=== PATIENT | male | born 1960 | race American Indian/Alaskan Native ===

== ENCOUNTER 2018-10-29 21:22 | Emergency (ER) | payer OTHER ==
[2018-10-29 22:06] VITALS: BP 146/83
--- NOTE | 2018-10-29 23:24 | XRay Report ---
PROCEDURE: XR FOREARM LT TECHNIQUE: Left forearm radiographs, AP and lateral views. HISTORY: pain and swelling L hand COMPARISONS: None . FINDINGS: Fracture (s) and/or Dislocation(s): An acute nondisplaced fracture is noted involving the distal rad ial metaphysis. . Joint space(s): Normal . Soft tissues: Normal . Bone mineralization: Normal . Foreign bodies: None . IMPRESSION: Acute fracture distal radial metaphysis. This document is electronically signed by Esteban Casper MD., October 29 2018 11:22:15 PM ET
--- NOTE | 2018-10-29 23:35 | XRay Report ---
PROCEDURE: XR HAND 3+V LT TECHNIQUE: Left hand radiographs, PA, lateral, and oblique views. HISTORY: pain and swelling L hand COMPARISONS: None . FINDINGS: Fracture (s) and/or Dislocation(s): Acute nondisplaced fracture is noted involving distal radial met aphysis. . Alignment: Normal . Joint space(s): Normal . Soft tissues: Mild degree soft tissue swelling is noted. . Bone mineralization: Normal . Foreign bodies: None . IMPRESSION: Acute nondisplaced fracture of distal radial metaphysis. This document is electronically signed by Esteban Casper MD., October 29 2018 11:33:20 PM ET
[2018-10-30] MEDS ORDERED: NORCO 5/325 PO ONE
--- NOTE | 2018-10-30 00:51 | Emergency Department Report ---
ED Upper Extremity Inj HPI - General Chief Complaint: Extremity Injury, Upper Stated Complaint: LEFT HAND INJURY Time Seen by Provider: 10/29/18 23:58 Source: patient Mode of arrival: Ambulatory Limitations: No Limitations - History of Present Illness Initial Comments: Patient is a 58-year-old Armenian male who presents with left wrist pain status post fall in the bed of his pickup truck patient states is common Haritha slipped and fell on his left wrist pain swelling 11/28 there is no open wound no bleeding range of motion is restricted by pain MD Complaint: Injury to:: left, wrist Onset/Timin -: hour(s) Other Extremity Injury: Wrist: Left Other Injuries: none Handedness: right Place: outdoors Severity scale (0 -10): 5 Improves With: none Worsens With: movement of extremity Context: fall, direct blow - Related Data Previous Rx's Medication Instructions Recorded Last Taken Type HYDROcodone/ACETAMINOPHEN 1 each PO Q6H PRN #12 tablet 10/30/18 Unknown Rx [Hydrocodone-Acetamin 5-325 mg] Allergies Allergy/AdvReac Type Severity Reaction Status Date / Time No Known Allergies Allergy Unverified 10/29/18 21:50 ED Review of Systems ROS: Stated complaint: LEFT HAND INJURY Other details as noted in HPI Constitutional: denies: chills, fever Eyes: denies: eye pain, eye discharge, vision change ENT: denies: ear pain, throat pain Respiratory: denies: cough, shortness of breath, wheezing Cardiovascular: denies: chest pain, palpitations Endocrine: no symptoms reported Gastrointestinal: denies: abdominal pain, nausea, diarrhea Genitourinary: denies: urgency, dysuria Musculoskeletal: arthralgia, other (left wrist pain ) Skin: denies: rash, lesions Neurological: denies: headache, weakness, paresthesias Psychiatric: denies: anxiety, depression Hematological/Lymphatic: denies: easy bleeding, easy bruising ED Past Medical Hx - Past Medical History Previous Medical History?: Yes Hx Hypertension: Yes Hx Diabetes: Yes - Surgical History Past Surgical History?: No - Social History Smoking Status: Current Every Day Smoker Substance Use Type: Heroin - Medications Home Medications: Home Medications Medication Instructions Recorded Confirmed Last Taken Type HYDROcodone/ACETAMINOPHEN 1 each PO Q6H PRN #12 tablet 10/30/18 Unknown Rx [Hydrocodone-Acetamin 5-325 mg] ED Physical Exam - General Limitations: No Limitations General appearance: alert, in no apparent distress - Head Head exam: Present: atraumatic, normocephalic, normal inspection - Eye Eye exam: Present: normal appearance, PERRL, EOMI - ENT ENT exam: Present: normal exam, mucous membranes moist - Neck Neck exam: Present: normal inspection, full ROM. Absent: tenderness, lymphadenopathy - Respiratory Respiratory exam: Present: normal lung sounds bilaterally. Absent: respiratory distress, wheezes, stridor, chest wall tenderness - Cardiovascular Cardiovascular Exam: Present: regular rate, normal rhythm. Absent: systolic murmur, diastolic murmur, rubs, gallop - GI/Abdominal GI/Abdominal exam: Present: soft, normal bowel sounds. Absent: distended, rebound, bruit, hernia - Rectal Rectal exam: Present: deferred - exam: Present: normal inspection - Extremities Exam Extremities exam: Present: normal inspection, tenderness, normal capillary refill, joint swelling - Expanded Upper Extremity Exam Left Forearm Wrist exam: Present: tenderness, swelling. Absent: abrasion, laceration, ecchymosis, deformity, crepidus, dislocation, erythema, tenderness over anatomical snuff box, pain with axial thumb loading Hand Wrist exam: Present: tenderness, swelling. Absent: abrasion, laceration, ecchymosis, deformity, crepidus, dislocation, erythema, amputation, nail avulsion, subungual hematoma Neuro motor exam: Present: wrist extension intact, thumb opposition intact, t humb IP flexion intact, thumb adduction intact, fingers 2-5 abduction intact Neurosensory exam: Present: 2-point discrimination, radial nerve intact, ulnar nerve intact, median nerve intact Vascular: Present: normal capillary refill, radial pulse, brachial pulse, ulnar pulse. Absent: vascular compromise, pulse deficit radial art, pulse deficit uln ar art, pulse deficit brachial art - Back Exam Back exam: Present: normal inspection, full ROM. Absent: tenderness, muscle spasm, rash noted - Neurological Exam Neurological exam: Present: alert, oriented X3, CN II-XII intact, normal gait, reflexes normal - Psychiatric Psychiatric exam: Present: normal affect, normal mood - Skin Skin exam: Present: warm, dry, intact, normal color. Absent: rash ED Course Vital Signs 10/29/18 22:03 Temperature 99.1 F Pulse Rate 60 Respiratory 18 Rate Blood Pressure 146/83 O2 Sat by Pulse 95 Oximetry ED Medical Decision Making - Radiology Data Radiology results: report reviewed, image reviewed Fluoro Time In Minutes: PROCEDURE: XR HAND 3+V LT TECHNIQUE: Left hand radiographs, PA, lateral, and oblique views. HISTORY: pain and swelling L hand COMPARISONS: None . FINDINGS: Fracture (s) and/or Dislocation(s): Acute nondisplaced fracture is noted involving distal radial metaphysis. . Alignment: Normal . Joint space(s): Normal . Soft tissues: Mild degree soft tissue swelling is noted. . Bone mineralization: Normal . Foreign bodies: None . IMPRESSION: Acute nondisplaced fracture of distal radial metaphysis. This document is electronically signed by Rosita Casper MD., October 29 2018 11:33:20 PM ET Transcribed By: [facility] [place] Dictated By: ROSTIA CASPER Electronically Authenticated By: ROSITA CASPER Signed Date/Time: 10/29/182334 DD/ 11 TD/TT: 10/29/182312 Patient: PAULETTE VARGAS MR#: [id number] : 1960 Acct:[id number] Age/Sex: 58 / M ADM Date: 10/29/18 Loc: ED Attending Dr: Ordering Physician: DANG MENDIETA MD Date of Service: 10/29/18 Procedure(s): XR forearm LT Accession Number(s): [id number] cc: DANG MENDIETA MD Fluoro Time In Minutes: PROCEDURE: XR FOREARM LT TECHNIQUE: Left forearm radiographs, AP and lateral views. HISTORY: pain and swelling L hand COMPARISONS: None . FINDINGS: Fracture (s) and/or Dislocation(s): An acute nondisplaced fracture is noted involving the distal radial metaphysis. . Joint space(s): Normal . Soft tissues: Normal . Bone mineralization: Normal . Foreign bodies: None . IMPRESSION: Acute fracture distal radial metaphysis. This document is electronically signed by Rosita Casper MD., October 29 2018 11:22:15 PM ET Transcribed By: [facility] [place] Dictated By: ROSITA CASPER Electronically Authenticated By: ROSITA CASPER Signed Date/Time: 10/29/18 2324 DD/ 12 TD/TT: 10/29/182312 - Medical Decision Making this is a closed distal radial fract nondisplaced plan velcro thumb spica, follow up with ortho in am, distal pulses intact student specialist intact <3 sec, rom restricted by pain no deformity no crepitus, no ecchymosis no pain to axial thumb loading, no schaphoid tendersness, splint check completed, spacing appropriated via two finger insertion. distal pulses are intact Critical care attestation.: If time is entered above; I have spent that time in minutes in the direct care of this critically ill patient, excluding procedure time. ED Disposition Clinical Impression: Closed fracture distal radius and ulna Qualifiers: Encounter type: initial encounter Laterality: left Qualified Code(s): S52.502A - Unspecified fracture of the lower end of left radius, initial encounter for closed fracture; S52.602A - Unspecified fracture of lower end of left ulna, initial encounter for closed fracture Disposition: TO HOME OR SELFCARE Is pt being admited?: No Does the pt Need Aspirin: No Condition: Stable Instructions: Wrist Fracture in Adults (ED) Prescriptions: HYDROcodone/ACETAMINOPHEN [Hydrocodone-Acetamin 5-325 mg] 1 each PO Q6H PRN #12 tablet PRN Reason: Pain , Severe (7-10) Referrals: JANE STEVE MD [Staff Physician] - 3-5 Days Forms: Work/School Release Form(ED) Time of Disposition: 00:59
== END 2018-10-30 01:22 | disposition home or self-care (01) ==
LOC: ED 21:22
DX: S52.502A Unspecified fracture of the lower end of left radius, initial encounter for closed fracture (principal); I10 Essential (primary) hypertension; E11.9 Type 2 diabetes mellitus without complications; F17.200 Nicotine dependence, unspecified, uncomplicated; W01.0XXA Fall on same level from slipping, tripping and stumbling without subsequent striking against object, initial encounter; Y93.89 Activity, other specified; Y92.89 Other specified places as the place of occurrence of the external cause; Y99.8 Other external cause status